=== PATIENT | male | born 1975 | race Hispanic/Latino ===

== ENCOUNTER 2017-03-13 14:31 | Emergency (ER) | payer OTHER, SELFPAY ==
--- NOTE | 2017-03-13 14:34 | ED PDOC ---
Arrival/HPI - General Chief Complaint: Lower Extremity Problem/Injury Time Seen by Provider: 03/13/17 14:33 Historian: Patient - History of Present Illness Narrative History of Present Illness (Text): 03/13/17 14:58 Patient states he recently started working out again. He usually runs and does cardio outside, but started doing weights, and calf lifts. Patient states he feels tight in his right calf, patient states he has noticed his right leg has been swollen compared to the left leg. Patient denies numbness, weakness in extremities and states he was able to walk here. Patient states he is able to move his lower extremities without problems. He states he saw the [facility] doctor who told him to come to the hospital after doing a physical exam which the right leg hurt, but patient is unable to state what exam was done. 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 ) Past Medical History - Provider Review Nursing Documentation Reviewed: Yes - Travel History Have you recently traveled outside [place] w/in the past 3 mons?: No - Past History Past History: Non-Contributing - Cardiac Hx Hypertension: Yes - Past Surgical History Past Surgical History: Non-Contributing Family/Social History - Physician Review Nursing Documentation Reviewed: Yes Family/Social History: Unknown Family HX Smoking Status: Never Smoked Hx Alcohol Use: Yes (6-15 beers a weekend) Hx Substance Use: No Allergies/Home Meds Allergies/Adverse Reactions: Allergies No Known Allergies Allergy (Verified 03/13/17 15:00) Home Medications: Home Meds Medication Instructions Recorded Confirmed No Known Home Med 03/13/17 03/13/17 Review of Systems - Review of Systems Constitutional: Normal Eyes: Normal. absent: Vision Changes, Photophobia ENT: Normal. absent: Hearing Changes, Tinnitus Respiratory: Normal Cardiovascular: Calf Pain. absent: Chest Pain, Palpitations Gastrointestinal: Normal. absent: Abdominal Pain, Stool Changes, Constipation, Diarrhea Genitourinary Male: Normal. absent: Dysuria, Frequency, Hematuria Musculoskeletal: Normal Skin: Normal. absent: Rash, Pruritis, Skin Lesions Neurological: absent: Headache, Dizziness, Focal Weakness, Gait Changes, Speech Changes, Facial Droop, Disequilibrium Endocrine: absent: Diaphoresis, Polyuria Hemo/Lymphatic: absent: Adenopathy, Easy Bleeding, Easy Bruising Psychiatric: absent: Anxiety, Depression, Suicidal Ideation Physical Exam Vital Signs Reviewed: Yes Temperature: Afebrile Blood Pressure: Normal Pulse: Regular Respiratory Rate: Normal Appearance: Positive for: Comfortable Mental Status: Positive for: Alert and Oriented X 3 - Systems Exam Head: Present: Atraumatic, Normocephalic Pupils: Present: PERRL Extroacular Muscles: Present: EOMI Conjunctiva: Present: Normal Ears: Present: Normal. No: NORMAL TM, Erythema, Normal Canal Mouth: Present: Moist Mucous Membranes Nose (External): Present: Atraumatic Nose (Internal): Present: Normal Inspection Neck: Present: Normal Range of Motion, Trachea Midline. No: JVD, Lymphadenopathy Cardiovascular: Present: Regular Rate and Rhythm, Normal S1, S2 Abdomen: Present: Normal Bowel Sounds. No: Tenderness, Distention Upper Extremity: Present: Normal Inspection, Edema, Normal ROM, NORMAL PULSES, Capillary Refill < 2s Lower Extremity: Present: Normal Inspection, Normal ROM, Swelling (2+ pitting edema bilaterally), Capillary Refill < 2 s, Other. No: Edema, NORMAL PULSES ( diminished right dp, pt, at pulses. palpable left dp, pt, at pulses 2/2), Erythema Neurological: Present: GCS=15, CN II-XII Intact Skin: Present: Dry, Rashes, Other (right dorsal surface of the foot is cooler than the left. toes are cold bilaterally. no added discoloration anterior tibial area. Right foot slightly paler than left.) Medical Decision Making ED Course and Treatment: 03/13/17 15:59 cbc cmp, mg, phos bnp d dimer duplex of lower extremities Re-evaluation Time: 16:45 Reassessment Condition: Re-examined, Unchanged - Lab Interpretations Lab Results: 03/13/17 16:05 03/13/17 16:05 Lab Results 03/13/17 16:05: Sodium Pending, Potassium Pending, Chloride Pending, Carbon Dioxide Pending, Anion Gap Pending, BUN Pending, Creatinine Pending, Est GFR ( Amer) Pending, Est GFR (Non-Af Amer) Pending, Random Glucose Pending, Calcium Pending, Phosphorus Pending, Magnesium Pending, Total Bilirubin Pending , AST Pending, ALT Pending, Alkaline Phosphatase Pending, NT-Pro-B Natriuret Pep 83.4, Total Protein Pending, Albumin Pending, Globulin Pending, Albumin/ Globulin Ratio Pending 03/13/17 16:05: WBC 6.2, RBC 4.96, Hgb 13.4 L, Hct 41.9 L, MCV 84.5, MCH 27.0, MCHC 32.0, RDW 13.9, Plt Count 189, MPV 10.5, Gran % 74.3 H, Lymph % (Auto) 17.5 L, [place] % (Auto) 6.4 H, Eos % (Auto) 1.6, Baso % (Auto) 0.2, Gran # 4.63, Lymph # 1.1 L, [place] # 0.4, Eos # 0.1, Baso # 0.01 - RAD Interpretation Narrative RAD Interpretations (Text): 03/13/17 16:54 ultrasound is negative for DVT Radiology Orders: 03/13/17 15:00 DUPLEX LOWER EXTRM VEIN BILAT [US] Stat - EKG Interpretation Interpreted by ED Physician: No Disposition/Present on Arrival - Present on Arrival Any Indicators Present on Arrival: No History of DVT/PE: No History of Uncontrolled Diabetes: No Urinary Catheter: No History of Decub. Ulcer: No - Disposition Have Diagnosis and Disposition been Completed?: Yes Diagnosis: Leg edema, right, Leg edema, left Disposition: HOME/ ROUTINE Disposition Time: 17:00 Patient Plan: Discharge Condition: FAIR Additional Instructions: follow up with primary care doctor or establish with one for further workup of leg swelling elevate legs with pillows and decrease salt intake (decrease sodium intake) Referrals: PCP,NO [Primary Care Provider] - Follow up with primary Forms: [email or web address] ([place])
[2017-03-13 16:41] LABS: BASO # 0.01 K/mm3 (0.0-2.0); BASO % 0.2 % (0.0-3.0); EOS # 0.1 (0.0-0.7); EOS % 1.6 % (1.5-5.0); GRAN # 4.63 (1.4-6.5); GRAN % 74.3 % (50.0-68.0); HEMOGLOBIN 13.4 g/dL (14.0-18.0); LYMPH # 1.1 (1.2-3.4); LYMPH % 17.5 % (22.0-35.0); MEAN CELL VOLUME 84.5 fl (80.0-105.0); MEAN PLATELET VOLUME 10.5 fl (7.0-11.0); MONO # 0.4 (0.1-0.6); MONO % 6.4 % (1.0-6.0); RBC 4.96 10^6/uL (3.5-6.1); RED CELL DISTRIBUTION WIDTH 13.9 % (11.5-14.5); WHITE BLOOD COUNT 6.2 10^3/ul (4.5-11.0)
[2017-03-13 16:52] LABS: ALB/GLOB RATIO 1.3 (1.1-1.8); ALBUMIN 4.3 g/dL (3.0-4.8); ALT/SGPT 49 U/L (7-56); AST/SGOT 35 U/L (17-59); B-TYPE NATRIURETIC PEPTIDE 83.4 pg/mL (0-450); BLOOD UREA NITROGEN 13 mg/dL (7-21); CALCIUM 10.2 mg/dL (8.4-10.5); GFR AFRICAN-AMERICAN > 60; GFR NON-AFRICAN AMERICAN > 60; MAGNESIUM 1.8 mg/dL (1.7-2.2)
--- NOTE | 2017-03-13 17:09 | US ---
HISTORY: Leg pain and swelling. Evaluate for DVT PHYSICIAN(S): Colby Lopez MD. TECHNIQUE: Duplex sonography and color-flow Doppler with graded compression were used to evaluate the deep venous systems of both lower extremities. FINDINGS: The visualized deep venous systems of both lower extremities are sonographically normal and compressible. Normal wave forms and augmentation are seen. There is no sonographic evidence for deep venous thrombosis in the visualized segments of both lower extremities. IMPRESSION: No sonographic evidence for deep venous thrombosis in the visualized segments of both lower extremities.
[2017-03-13 17:30] VITALS: RESP 18
[2017-03-13 17:31] VITALS: BP 132/74; PULSE 88; O2SAT 100
== END 2017-03-13 17:34 | disposition home or self-care (01) ==
LOC: ED 14:31
DX: R60.0 Localized edema (principal); I10 Essential (primary) hypertension